=== PATIENT | female | born 1990 | race Caucasian/White ===

== ENCOUNTER → 2017-03-18 | Outpatient (CLI) | payer OTHER | LOC: EMI 10:36 | DX: E22.1 Hyperprolactinemia (principal) | CPT/HCPCS: 70553; A9577; J7050 ==

== ENCOUNTER 2017-04-08 20:15 | Emergency (ER) | payer OTHER | END 2017-04-09 01:59 | disposition home or self-care (01) | LOC: ER1 20:15 | DX: J10.1 Influenza due to other identified influenza virus with other respiratory manifestations (principal); R07.9 Chest pain, unspecified; F17.210 Nicotine dependence, cigarettes, uncomplicated | CPT/HCPCS: 36415; 71020; 81001; 84703; 87081; 87086; 87880; 93005; 99284 ==

== ENCOUNTER 2021-04-07 10:10 | Emergency (ER) | payer OTHER ==
[2021-04-07] MEDS ORDERED: BACTRIM DS TAB1 EACH PO (14:55)
[2021-04-07] MEDS ORDERED: AUGMENTIN 875-1 EACH PO (14:55)
== END 2021-04-07 15:20 | disposition home or self-care (01) ==
LOC: ER1 10:10
DX: J32.9 Chronic sinusitis, unspecified (principal); F17.200 Nicotine dependence, unspecified, uncomplicated
CPT/HCPCS: 10060; 87070; 87077; 87186; 87205; 99152; 99153; 99283; J2250; J7030